=== PATIENT | female | born 1965 | race Caucasian/White ===

== ENCOUNTER → 2016-12-03 | Outpatient (CLI) | payer BC ==
--- NOTE | 2016-12-03 17:10 | PCVCIMAG ---
APPROVED REPORT Study performed: 12/03/2016 08:15:21 EXAM: Comprehensive 2D, Doppler, and color-flow Echocardiogram Patient Location: Echo lab Status: routine Other Information Study Quality: Adequate Technically limited study due to breast augmentation. Risk Factors: Cardiac Risk Factors: HTN Indications Mitral Valve Disease Murmur Dyspnea Mitral regurgitation 2D Dimensions LVEF(%): 49.59 (>50%) IVSd: 7.29 (7-11mm) LVDd: 48.18 mm PWd: 7.81 (7-11mm) LVDs: 36.07 (25-40mm) Left Atrium: 33.88 (27-40mm) Aortic Root: 32.09 mm LV Single Plane 4CH: 66.62 % LV Single Plane 2CH: 64.10 %Garcia's LVEF: 65.36 % Biplane EF: 66.0 % Volumes Left Atrial Volume (Systole) Single Plane 4CH: 53.52 mLSingle Plane 2CH: 56.73 mL LA ESV Index: 26.00 mL/m2 Aortic Valve AoV Peak Panda.: 1.58 m/s AO Peak Gr.: 9.93 mmHgLVOT Max P.10 mmHg LVOT Max V: 1.13 m/s Mitral Valve E/A Ratio: 2.2 MV Decel. Time: 182.08 ms MV E Max Panda.: 1.03 m/s MV A Panda.: 0.46 m/s IVRT: 69.20 ms Pulmonary Valve PV Peak Panda.: 0.88 m/sPV Peak Gr.: 3.07 mmHg Pulmonary Vein P Vein S: 0.51 m/sP Vein A: 0.33 m/s P Vein D: 0.48 m/sP Vein A Dur.: 107.3 msec P Vein S/D Ratio: 1.06 Tricuspid Valve TR Peak Panda.: 2.54 m/s TR Peak Gr.: 25.81 mmHg Left Ventricle The left ventricle is normal size. There is normal LV segmental wall motion. There is normal left ventricular wall thickness. Left ventricular systolic function is normal. The left ventricular ejection fraction is within the normal range. LVEF is 65%. The left ventricular diastolic function is normal. Right Ventricle The right ventricle is normal size. The right ventricular systolic function is normal. Atria The left atrium size is normal. The right atrium size is normal. Aortic Valve The aortic valve is normal in structure. No aortic regurgitation is present. There is no aortic valvular stenosis. Mitral Valve The mitral valve is normal in structure. Mild mitral regurgitation. No evidence of mitral valve stenosis. Tricuspid Valve The tricuspid valve is normal in structure. There is mild tricuspid regurgitation. The pulmonary arterial pressure is estimated at 33 mmHg. Pulmonic Valve The pulmonary valve is normal in structure. There is no pulmonic valvular regurgitation. Great Vessels The aortic root is normal in size. IVC is normal in size and collapses with >50% inspiration Pericardium There is no pericardial effusion. <Conclusion> The left ventricle is normal size. There is normal left ventricular wall thickness. LVEF is 65%. The left ventricular diastolic function is normal. The right ventricle is normal size. The left atrium size is normal. The aortic valve is normal in structure. Mild mitral regurgitation. There is mild tricuspid regurgitation. The pulmonary arterial pressure is estimated at 33 mmHg. There is no pericardial effusion.
== END | disposition home or self-care (01) ==
LOC: PCVCIMAG 08:44
PROVIDERS: ATTEND Internal Medicine Cardiovascular Disease
DX: I08.1 Rheumatic disorders of both mitral and tricuspid valves (principal); I10 Essential (primary) hypertension
CPT/HCPCS: 93306

== ENCOUNTER → 2018-06-24 | Outpatient (CLI) | payer BC ==
--- NOTE | 2018-06-24 12:07 | PCVCIMAG ---
APPROVED REPORT Study performed: 06/24/2018 09:12:48 EXAM: Comprehensive 2D, Doppler, and color-flow Echocardiogram Patient Location: Echo lab Room #: 2Status: routine BSA: 1.71 HR: 56 bpmBP: 124/84 mmHg Rhythm: Bradycardia Other Information Study Quality: Adequate Risk Factors: Cardiac Risk Factors: HTN Indications Mitral Valve Disease Hypertension/HDD 2D Dimensions IVSd: 7.16 (7-11mm)LVOT Diam: 20.08 (18-24mm) LVDd: 47.82 mm PWd: 8.32 (7-11mm)Ascending Ao: 28.35 (22-36mm) LVDs: 30.89 (25-40mm) Left Atrium: 26.80 (27-40mm) Aortic Root: 27.33 mm LV Single Plane 4CH: 56.97 % LV Single Plane 2CH: 58.26 % Biplane EF: 57.5 % Volumes Left Atrial Volume (Systole) Single Plane 4CH: 43.98 mLSingle Plane 2CH: 49.91 mL Biplane LA Volume: 48.00 mLLA ESV Index: 29.00 mL/m2 Aortic Valve AoV Peak Panda.: 1.26 m/s AO Peak Gr.: 6.30 mmHgLVOT Max P.47 mmHg LVOT Max V: 0.93 m/s WINDY Vmax: 2.35 cm2 Mitral Valve E/A Ratio: 1.4 MV Decel. Time: 192.42 ms MV E Max Panda.: 0.76 m/s MV A Panda.: 0.53 m/s IVRT: 107.27 ms TDI E/Lateral E': 9.50E/Medial E': 10.86 Medial E' Panda.: 0.07 m/s Lateral E' Panda.: 0.08 m/s Pulmonary Valve PV Peak Panda.: 0.68 m/sPV Peak Gr.: 1.85 mmHg Pulmonary Vein P Vein S: 0.49 m/sP Vein A: 0.27 m/s P Vein D: 0.45 m/sP Vein A Dur.: 124.6 msec P Vein S/D Ratio: 1.09 Tricuspid Valve TR Peak Panda.: 1.97 m/s TR Peak Gr.: 15.59 mmHg TV Vmax: 0.53 m/sPA Pressure: 23.00 mmHg Left Ventricle The left ventricle is normal size. There is normal LV segmental wall motion. There is normal left ventricular wall thickness. Left ventricular systolic function is normal. The left ventricular ejection fraction is within the normal range. LVEF is 55-60%. The left ventricular diastolic function is normal. Right Ventricle The right ventricle is normal size. The right ventricular systolic function is normal. Atria The left atrium size is normal. The right atrium size is normal. Aortic Valve Aortic valve is trileaflet. Aortic valve leaflets are mildly sclerotic but open well. No aortic regurgitation is present. There is no aortic valvular stenosis. Mitral Valve The mitral valve is normal in structure. Possible borderline prolapse at the leaflet tip. Trace to mild mitral regurgitation. No evidence of mitral valve stenosis. Tricuspid Valve The tricuspid valve is normal in structure. Trace tricuspid regurgitation with a PA pressure of 23 mmHg. Pulmonic Valve The pulmonary valve is normal in structure. There is no pulmonic valvular regurgitation. Great Vessels The aortic root is normal in size. The ascending aorta is normal in size. Aortic arch is normal in caliber. IVC is normal in size and collapses >50% with inspiration. Pericardium There is no pericardial effusion. There is no pleural effusion. <Conclusion> The left ventricle is normal size. LVEF is 55-60%. The right ventricle is normal size. The left atrium size is normal. Aortic valve is trileaflet. Aortic valve leaflets are mildly sclerotic but open well. There is no aortic valvular stenosis. The mitral valve is normal in structure. Possible borderline prolapse at the leaflet tip. Trace to mild mitral regurgitation. Trace tricuspid regurgitation with a PA pressure of 23 mmHg. The aortic root is normal in size. There is no pericardial effusion.
== END | disposition home or self-care (01) ==
LOC: PCVCIMAG 09:11
PROVIDERS: ATTEND Internal Medicine Cardiovascular Disease
DX: I10 Essential (primary) hypertension (principal); I05.9 Rheumatic mitral valve disease, unspecified
CPT/HCPCS: 93306